=== PATIENT | female | born 1960 | race Caucasian/White ===

== ENCOUNTER 2022-04-20 08:27 | Emergency (ER) | payer OTHER, SELFPAY ==
--- NOTE | ~2022-04-20 | CT_ITS ---
EXAMINATION: CT abdomen pelvis w con DATE: 04/20/2022 09:54 INDICATION: Epigastric abdominal pain, nausea vomiting, diarrhea TECHNIQUE: Computed tomography (CT) of the abdomen and pelvis was performed with 100 CC Omnipaque 300 intravenous contrast. Automated exposure control and iterative reconstruction technique were employe d. Exam dose: 1506.65 mGy-cm total exam DLP. COMPARISON: None. FINDINGS: Calcified left hilar and mediastinal nodes, in addition to calcified hepatic and splenic gr anulomas, consistent with old granulomatous disease. The lung bases are clear. Normal heart size. No pericardial or pleural effusion. Diffuse hepatic steatosis. No hepatic, splenic, pancreatic, and adrenal or renal space-occupying mass lesion other than the very small lower pole right renal cyst. The gallbladder is present. No bile duct or pancreatic duct dilatation. No urinary tract calculus or hydroureteronephrosis. Normal caliber of the abdominal aorta. No intraperitoneal or retroperitoneal or pelvic mass lesion or adenopathy or ascites. The uterus and adnexal areas and urinary bladder are unremarkable. Normal appendix. There is a prominent amount of fecal material in the colon. No bowel obstruction, az wel wall thickening, pneumatosis or intraperitoneal free air. IMPRESSION: Normal appendix. No bowel obstruction. Hepatic steatosis Very small right renal cyst Reviewed, dictated and finalized at [facility]. Reviewed, dictated and finalized at [facility].
[2022-04-20 08:27] VITALS: BP 155/81; PULSE 72; RESP 16; TEMP 36.4; O2SAT 99
--- NOTE | 2022-04-20 08:46 | ED.ABDPAIN ---
HPI - Abdominal Pain General Chief Complaint: Abdominal Pain Stated Complaint: N/V/D Time Seen by Provider: 04/20/22 08:40 History of Present Illness HPI narrative: pt started Ozempic for wt loss yesterday and since n/v/d and epigastric pain not preg no urine changes no cp/sob/f/travel bad food or sick conacts no previous abd surgery Related Data Allergies Allergy/AdvReac Type Severity Reaction Status Date / Time Sulfa (Sulfonamide Allergy Unknown SKIN Verified 05/11/16 12:01 Antibiotics) INSIDE MY MOUTH AND NOSE SLOUGHS OFF Review of Systems Review of Systems: CONSTITUTIONAL: Denies fever, chills, or sweats. EYES: Denies visual changes, redness, or discharge. ENT: Denies rhinorrhea, congestion, sore throat, or otalgia. CARDIOVASCULAR: Denies chest pain, palpitations, or edema. RESPIRATORY: Denies cough or dyspnea. GASTROINTESTINAL: has abdominal pain, nausea, vomiting, or diarrhea. GENITOURINARY: Denies dysuria or hematuria. SKIN: Denies rash or itching. MUSCULOSKELETAL: Denies back pain, joint pain, or myalgia. NEUROLOGIC: Denies headache, numbness, or weakness. PSYCHIATRIC: Denies anxiety or depression. Exam Narrative: APPEARANCE: Well appearing, no pain in distress, well-nourished. Head normocephalic atraumtaic. EYES: PERRLA/EOMI, conjunctivae very clear. NOSE: Normal no drainage EARS:TMS clear Nilda Ballard, with good light reflex. THROAT: Pharynx clear, no exudate. NECK: Supple. No adenopathy, no masses. RESPIRATORY: Airway patent, repsirations nonlabored. Clear to auscultation bilaterally, no rales, rhonchi, wheezing. CARDIOVASCULAR: Regular rate and rhythm without murmurs rubs or gallops. ABDOMINAL: Soft, tenderness epigastric more than ruq, nondistended, no hepatosplenomegally MUSCULOSKELETAl: Moves all extremities. Strenght/ROM intact, No edema, No calf tenderness. NEURO: Alert. Cranial nerves II through XII intact. Good gait. Good coordination SKIN:: Warm, dry. Normal Color PSYCHIATRIC: Normal affect/mood, normal interaction with parents. Course Course Emergency Course: doing fine at 1110 good with update and home Vital Signs Vital signs: Vital Signs Temperature 36.4 C L 06/14/22 08:27 Pulse Rate 72 04/20/22 08:27 Respiratory Rate 16 04/20/22 08:27 Blood Pressure 155/81 H 04/20/22 08:27 Pulse Oximetry 99 04/20/22 08:27 Oxygen Delivery Room Air 04/20/22 08:27 Temperature 36.4 C L 04/20/22 08:27 Pulse Rate 72 04/20/22 08:27 Respiratory Rate 16 04/20/22 08:27 Blood Pressure 155/81 H 04/20/22 08:27 Pulse Oximetry 99 04/20/22 08:27 Oxygen Delivery Room Air 04/20/22 08:27 MDM - Abdominal Pain Lab Data Result diagrams: 04/20/22 09:06 04/20/22 09:06 Labs: Lab Results 04/20/22 04/20/22 Range/Units 09:06 09:06 WBC 10.2 H (4.5-10.0) K/mm3 RBC 4.60 (4.2-5.4) M/mm3 Hgb 11.6 L (12.0-15.0) g/dL Hct 37.8 (37.0-47.0) % MCV 82.2 (80-100) fl MCH 25.2 L (26-34) pg MCHC 30.7 L (32-36) g/dl RDW 15.8 H (11.5-14.5) % Plt Count 302 (150-375) k/mm3 MPV 9.8 (7.4-10.4) fl Immature Gran % (Auto) 0.4 (0-0.5) % Neut % (Auto) 85.8 H (45.5-73.1) % Lymph % (Auto) 8.2 L (18.3-44.2) % [place] % (Auto) 4.5 (2.6-8.5) % Eos % (Auto) 0.3 (0-4.4) % Baso % (Auto) 0.8 (0.2-1.2) % Lymph # (Auto) 0.84 L (0.9-3.2) K/mm3 [place] # (Auto) 0.5 (0.1-0.6) K/mm3 Eos # (Auto) 0.0 (0-0.3) K/mm3 Baso # (Auto) 0.1 (0.0-0.1) K/mm3 Abs Immat Gran (auto) 0.04 H (0.00-0.031) K/mm3 Absolute Neuts (auto) 8.8 H (1.3-6.7) K/mm3 Absolute Nucleated RBC 0.0 (0.0-0.012) K/mm3 Nucleated RBC % 0.0 (0.0-0.2) % Sodium 138 (137-145) mmol/L Potassium 4.1 (3.4-5.0) mmol/L Chloride 107 (98-107) mmol/L Carbon Dioxide 26 (22-30) mmol/L Anion Gap 5 L (8-16) mmol/L BUN 12 (7-17) mg/dL Creatinine 0.80 (0.7-1.0) mg/dL Estim Creat Clear Calc 82 ml/min
[2022-04-20] MEDS: PROCHLORPERAZINE EDISYLATE 10 MG/2 ML VIAL IV PUSH (08:56)
[2022-04-20] MEDS: SODIUM CHLORIDE 0.9% IV 1,000 ML 999 ML IV CONT (08:56)
[2022-04-20] MEDS: FAMOTIDINE 20 MG/2 ML VIAL IV PUSH (08:56)
[2022-04-20 09:15] LABS: Basophils Absolute Auto 0.1 K/mm3 (0.0-0.1); Basophils Percent Auto 0.8 % (0.2-1.2); Eosinophils Percent Auto 0.3 % (0-4.4); Hematocrit 37.8 % (37.0-47.0); Hemoglobin 11.6 g/dL (12.0-15.0); Immature Granulocyte Absolute 0.04 K/mm3 (0.00-0.031); Immature Granulocyte Percent A 0.4 % (0-0.5); Lymphocytes Absolute Auto 0.84 K/mm3 (0.9-3.2); Lymphocytes Percent Auto 8.2 % (18.3-44.2); Mean Corpuscular HGB Conc 30.7 g/dl (32-36); Mean Corpuscular Hemoglobin 25.2 pg (26-34); Mean Corpuscular Volume 82.2 fl (80-100); Mean Platelet Volume 9.8 fl (7.4-10.4); Monocytes Absolute Auto 0.5 K/mm3 (0.1-0.6); Monocytes Percent Auto 4.5 % (2.6-8.5); Neutrophils Absolute Auto 8.8 K/mm3 (1.3-6.7); Neutrophils Percent Auto 85.8 % (45.5-73.1); Platelet Count Result 302 k/mm3 (150-375); Red Cell Distribution Width 15.8 % (11.5-14.5); White Blood Count 10.2 K/mm3 (4.5-10.0)
[2022-04-20 09:26] LABS: Alanine Aminotransferase 21 U/L (6-35); Albumin Level 4.1 g/dL (3.5-5.1); Alkaline Phosphatase 99 U/L (38-126); Anion Gap 5 mmol/L (8-16); Aspartate Amino Transferase 22 U/L (14-36); Bilirubin,Total 0.4 mg/dL (0.2-1.3); Blood Urea Nitrogen 12 mg/dL (7-17); Calcium 8.3 mg/dL (8.4-10.2); Carbon Dioxide 26 mmol/L (22-30); Chloride 107 mmol/L (98-107); Estimated CRCL calculation 82 ml/min; Estimated Glomerular Filt Rate > 60; Glucose 122 mg/dL (65-110); Lipase 82 U/L (23-300); Potassium 4.1 mmol/L (3.4-5.0); Sodium 138 mmol/L (137-145)
[2022-04-20 11:21] VITALS: RESP 20; O2SAT 98
== END 2022-04-20 11:21 | disposition home or self-care (01) ==
PROVIDERS: Emergency Provider Emergency Medicine
DX: R11.2 Nausea with vomiting, unspecified (principal); R19.7 Diarrhea, unspecified; R10.13 Epigastric pain; N28.1 Cyst of kidney, acquired
CPT/HCPCS: 36415; 74177; 80053; 83690; 83735; 85025; 96361; 96374; 96375; 99284; J0780; J7030; Q9967

== ENCOUNTER 2022-11-16 12:20 | Emergency (ER) | payer OTHER, SELFPAY ==
--- NOTE | ~2022-11-16 | XR_ITS ---
EXAMINATION: XR knee LT min 4V DATE: 11/16/2022 12:48 INDICATION: Left knee pain and swelling TECHNIQUE: Four views of the left knee were obtained. COMPARISON: None. FINDINGS: Alignment is normal. No fracture or osteochondral lesion. There is tricompartmental osteoa rthritis characterized by marginal osteophytes. No joint effusion/synovitis. Soft tissues are unrema rkable. IMPRESSION: 1. Osteoarthritis without acute osseous abnormality. Reviewed, dictated and finalized at [facility] [employer]
[2022-11-16 12:29] VITALS: BP 138/72; PULSE 78; RESP 16; TEMP 36.6; O2SAT 98
--- NOTE | 2022-11-16 13:08 | ED.EXTPRO ---
HPI - Extremity Problem General Chief complaint: Upper Respiratory Infection Stated complaint: SORE THROAT Time Seen by Provider: 11/16/22 13:08 Source: patient, RN notes reviewed and old records reviewed Mode of arrival: ambulatory Limitations: no limitations History of Present Illness HPI Narrative: 62-year-old female presents to the [facility] with a sore throat that started yesterday. Also is complaining of left knee pain Patient states her sore throat started yesterday, no she has some postnasal drip Has had the pain for about 2 days. Used felt foreign gel which she had for her fingers breasts knee. States it started while she was lying in bed. [facility] Related Data Home Medications Medication Instructions Recorded Confirmed alprazolam 0.5 mg tablet 0.5 mg PO DAILY PRN Anxiety 11/16/22 11/16/22 diclofenac sodium 1 % topical gel 1 ea topical DAILY 11/16/22 11/16/22 diltiazem HCl 240 mg capsule,24 240 mg PO DAILY 11/16/22 11/16/22 hr,extended release (Tiadylt ER) ergocalciferol (vitamin D2) 1,250 1,250 mcg PO WEEKLY 11/16/22 11/16/22 mcg (50,000 unit) capsule metformin 500 mg tablet 500 mg PO DAILY 11/16/22 11/16/22 omeprazole 40 mg capsule,delayed 40 mg PO DAILY 11/16/22 11/16/22 release prucalopride 2 mg tablet 2 mg PO DAILY 11/16/22 11/16/22 (Motegrity) venlafaxine 150 mg 150 mg PO DAILY 11/16/22 11/16/22 capsule,extended release 24 hr Allergies Allergy/AdvReac Type Severity Reaction Status Date / Time Sulfa (Sulfonamide Allergy Unknown SKIN Verified 11/16/22 12:59 Antibiotics) INSIDE MY MOUTH AND NOSE SLOUGHS OFF Review of Systems Review of Systems: All systems reviewed & are unremarkable except as noted in HPI and below Constitutional: Constitutional: Reports no additional constitutional complaints Eyes: Eyes: Reports no additional eye complaints ENT: Reports as per HPI Cardiovascular: Cardiovascular: Reports no additional cardiovascular complaints, Denies chest pain and Denies dyspnea Respiratory: Respiratory: Reports no additional respiratory complaints, Denies chest congestion, Denies cough and Denies dyspnea Gastrointestinal: Gastrointestinal: Reports no additional gastrointestinal complaints, Denies abdominal pain, Denies nausea and Denies vomiting Musculoskeletal: Musculoskeletal: Reports as per HPI Integumentary/Breasts: Skin/Breast: Reports system reviewed and no additional complaints, except as docu Neurologic: Reports system reviewed and no additional complaints, except as documented Psychiatric: Psychiatric: Reports no additional psychiatric complaints Allergic/Immunologic: Allergic/Immunologic: Reports no additional allergic/immunologic complaints PMFSH Comments At the time of my signature, I reviewed and agree with the nursing past medical, surgical, social, and family history. There is no relevant family history pertinent to the patient complaint. Exam Const: General: cooperative, healthy appearing, comfortable, no acute distress, well developed, alert and well nourished Nutritional Appearance: well nourished and obese Orientation/consciousness: patient oriented x3 Limitations: no limitations HENMT: Head: normal to inspection Ears: hearing grossly normal bilaterally and external ears normal Face/Nose/Sinus: Normal external nose present, Normal nares present, Normal nasal mucous membranes and turbinates present and normal facial exam Face and sinus: normal facial exam Mouth: Yes Normal oral and palatal mucosa present, Yes lip normal and Yes moist mucous membranes Throat: posterior oropharynx normal, uvula midline, postnasal drainage and no uvular edema Eyes: General: appearance normal, both eyes and all related structures Alignment and Position: alignment normal Periorbital: periorbital findings normal Conjunctivae: conjunctivae normal Pupils: Equal, round and reactive pupils present EOM: EOMs intact bilaterally Neck:
== END 2022-11-16 13:50 | disposition home or self-care (01) ==
PROVIDERS: Emergency Provider Nurse Practitioner
DX: J06.9 Acute upper respiratory infection, unspecified (principal); R09.82 Postnasal drip; M17.12 Unilateral primary osteoarthritis, left knee; I10 Essential (primary) hypertension; K21.9 Gastro-esophageal reflux disease without esophagitis; F41.9 Anxiety disorder, unspecified; F32.A Depression, unspecified
CPT/HCPCS: 73564; 87081; 87880; 99213; G0463

== ENCOUNTER 2022-11-23 09:40 | Emergency (ER) | payer OTHER, SELFPAY ==
--- NOTE | ~2022-11-23 | XR_ITS ---
Clinical Indication: Cough PA and lateral views of the chest: Comparison: None Findings: The lungs are clear, without evidence of focal consolidation or pleural effusion. Cardiome diastinal silhouette is within normal limits. There is a round radiodensity projecting in the midline at the thoracic inlet on the PA projection, not seen on lateral view. Impression: Clear lungs. Round radiodensity on the PA projection, as detailed above, not seen on lateral view. This may repres ent an external object. Correlate for foreign body, though this is felt to be unlikely given lack of visualization of the lateral view. Reviewed, dictated and finalized at [facility]. INTERPRETER Impression: Clear lungs. Round radiodensity on the PA projection, as detailed above, not seen on lateral view. This may represent an external object. Correlate for foreign body, yenni h this is felt to be unlikely given lack of visualization of the lateral view.
--- NOTE | 2022-11-23 09:44 | ED.URI ---
HPI - URI/Sore Throat General Chief Complaint: Upper Respiratory Infection Stated Complaint: Sore Throat/Cough Time Seen by Provider: 11/23/22 09:45 Source: patient, RN notes reviewed and old records reviewed Mode of arrival: ambulatory Limitations: no limitations History of Present Illness HPI Narrative: 62-year-old female presents to the [facility] with continued sore throat and has developed a cough. Patient is concerned about pneumonia. Strep last week was negative. Has not followed primary care provider Had taking ?left over cough medicine. ? States there is no [id number] medications works for her so she does not take Related Data Home Medications Medication Instructions Recorded Confirmed alprazolam 0.5 mg tablet 0.5 mg PO DAILY PRN Anxiety 11/16/22 11/23/22 diclofenac sodium 1 % topical gel 1 ea topical DAILY 11/16/22 11/23/22 diltiazem HCl 240 mg capsule,24 240 mg PO DAILY 11/16/22 11/23/22 hr,extended release (Tiadylt ER) ergocalciferol (vitamin D2) 1,250 1,250 mcg PO WEEKLY 11/16/22 11/23/22 mcg (50,000 unit) capsule metformin 500 mg tablet 500 mg PO DAILY 11/16/22 11/23/22 omeprazole 40 mg capsule,delayed 40 mg PO DAILY 11/16/22 11/23/22 release prucalopride 2 mg tablet 2 mg PO DAILY 11/16/22 11/23/22 (Motegrity) venlafaxine 150 mg 150 mg PO DAILY 11/16/22 11/23/22 capsule,extended release 24 hr Allergies Allergy/AdvReac Type Severity Reaction Status Date / Time Sulfa (Sulfonamide Allergy Unknown SKIN Verified 11/23/22 09:45 Antibiotics) INSIDE MY MOUTH AND NOSE SLOUGHS OFF Review of Systems Review of Systems: All systems reviewed & are unremarkable except as noted in HPI and below Constitutional: Constitutional: Reports no additional constitutional complaints Eyes: Eyes: Reports no additional eye complaints ENT: Reports as per HPI and Reports sore throat Cardiovascular: Cardiovascular: Reports no additional cardiovascular complaints, Denies chest pain and Denies dyspnea Respiratory: Respiratory: Reports as per HPI, Denies chest congestion, Reports cough and Denies dyspnea Gastrointestinal: Gastrointestinal: Reports no additional gastrointestinal complaints, Denies abdominal pain, Denies nausea and Denies vomiting Musculoskeletal: Musculoskeletal: Reports no additional musculoskeletal complaints Integumentary/Breasts: Skin/Breast: Reports system reviewed and no additional complaints, except as docu Neurologic: Reports system reviewed and no additional complaints, except as documented Psychiatric: Psychiatric: Reports no additional psychiatric complaints Allergic/Immunologic: Allergic/Immunologic: Reports no additional allergic/immunologic complaints [facility] Past Medical History Medical History (Updated 11/23/22 @ 10:10 by Renae Pittman APRN) Anxiety H/O gastroesophageal reflux (GERD) Vitamin D deficiency Comments At the time of my signature, I reviewed and agree with the nursing past medical, surgical, social, and family history. There is no relevant family history pertinent to the patient complaint. Exam Const: General: cooperative, healthy appearing, comfortable, no acute distress, well developed, alert and well nourished Nutritional Appearance: well nourished Orientation/consciousness: patient oriented x3 Limitations: no limitations HENMT: Head: normal to inspection Ears: hearing grossly normal bilaterally and external ears normal Face/Nose/Sinus: Normal external nose present, Normal nares present, Normal nasal mucous membranes and turbinates present and normal facial exam Face and sinus: normal facial exam Mouth: Yes Normal oral and palatal mucosa present, Yes lip normal and Yes moist mucous membranes Throat: posterior oropharynx normal and uvula midline Eyes: General: appearance normal, both eyes and all related structures Alignment and Position: alignment normal Periorbital: periorbital findings normal Conjunctivae: conjuncti
[2022-11-23 09:50] VITALS: BP 149/72; PULSE 80; RESP 16; TEMP 36.4; O2SAT 97
== END 2022-11-23 10:24 | disposition home or self-care (01) ==
PROVIDERS: Emergency Provider Nurse Practitioner
DX: J40 Bronchitis, not specified as acute or chronic (principal); F41.9 Anxiety disorder, unspecified; K21.9 Gastro-esophageal reflux disease without esophagitis; E55.9 Vitamin D deficiency, unspecified
CPT/HCPCS: 71046; 99213; G0463

== ENCOUNTER 2024-06-02 11:10 | Outpatient (CLI) | payer OTHER, SELFPAY ==
--- NOTE | 2024-06-02 11:22 | ECG_ITS ---
Test Date: 2024-06-02 11:33:28 Measurements Intervals [place] Rate: 86 P: 41 [place]: 147 QRS: 29 QRSD: 85 T: 55 QT: 344 QTc: 412 Interpretive Statements SINUS RHYTHM DELAYED PRECORDIAL R/S TRANSITION BORDERLINE ST-T WAVE ABNORMALITY- HIGH LATERAL LEADS BORDERLINE ECG No previous ECG available for comparison Electronically Signed On 06-02-2024 19:40:31 CDT by Surya Metz D.O.
== END 2024-06-02 11:11 | disposition home or self-care (01) ==
DX: I51.89 Other ill-defined heart diseases (principal); I47.10 Supraventricular tachycardia, unspecified; Z71.3 Dietary counseling and surveillance; R94.31 Abnormal electrocardiogram [ECG] [EKG]
CPT/HCPCS: 93005